=== PATIENT | male | born 2000 | race Hispanic/Latino ===

== ENCOUNTER 2024-01-27 22:59 | Emergency (ER) | payer OTHER ==
[2024-01-27] MEDS ORDERED: Cyclobenzaprine 10 MG TAB ONE (23:46)
[2024-01-27] MEDS ORDERED: Acetaminophen 325 MG TAB ONE (23:47)
[2024-01-28] MEDS ORDERED: Fluorescein Opthalmic Strip ONE (00:48)
== END 2024-01-28 01:50 | disposition home or self-care (01) ==
LOC: CSHERS 22:59
DX: S01.112A Laceration without foreign body of left eyelid and periocular area, initial encounter (principal); S01.312A Laceration without foreign body of left ear, initial encounter; S80.12XA Contusion of left lower leg, initial encounter; S80.212A Abrasion, left knee, initial encounter; S80.211A Abrasion, right knee, initial encounter; M79.10 Myalgia, unspecified site; V89.2XXA Person injured in unspecified motor-vehicle accident, traffic, initial encounter
CPT/HCPCS: 71045